=== PATIENT | female | born 1990 | race Caucasian/White ===

== ENCOUNTER → 2017-01-06 | Outpatient (CLI) | payer OTHER ==
[~2017-01-06] MED LIST: PENI500T PO; Z.0.NO CURRENT MEDS
[2017-01-06 11:15] LABS: AUTOMATED NEUTROPHIL # 4.4 TH/MM3 (1.8-7.7); BASOPHIL % 0.3 % (0.0-2.0); EOSINOPHIL # 0.1 TH/MM3 (0-0.4); EOSINOPHIL % 1.3 % (0.0-4.0); HEMATOCRIT 36.9 % (35.0-46.0); HEMO FLAGS DIFF FINAL; LYMPH % 24.8 % (9.0-44.0); LYMPHOCYTE # 1.6 TH/MM3 (1.0-4.8); MEAN CORPUSCULAR HEMOGLOBIN 30.6 PG (27.0-34.0); MEAN CORPUSCULAR HGB CONC 34.4 % (32.0-36.0); MONO % 6.9 % (0.0-8.0); NEUT % 66.7 % (16.0-70.0); PLATELET COUNT 256 TH/MM3 (150-450); RED BLOOD COUNT 4.15 MIL/MM3 (4.00-5.30); RED CELL DISTRIBUTION WIDTH 12.5 % (11.6-17.2); WHITE BLOOD COUNT 6.6 TH/MM3 (4.0-11.0)
[2017-01-06 11:53] LABS: RUBELLA IGG ANTIBODY 134.5 IU/mL (10.0-500.0); RUBELLA STATUS IMMUNE (IMMUNE)
[2017-01-07 17:13] LABS: CALCULATED AGE AT EDD 28 years (()); GA USED IN RISK ESTIMATE Scan estimate (()); MATERNAL RACE BLACK non-Black (()); MATERNAL WEIGHT (LBS) 149 lbs (()); RECOMMENDED FOLLOW UP None. (())
== END ==
LOC: CLAB 10:35
PROVIDERS: ATTEND Obstetrics & Gynecology
DX: Z34.80 Encounter for supervision of other normal pregnancy, unspecified trimester (principal)
CPT/HCPCS: 36415; 81511; 85025; 86592; 86703; 86762; 86850; 86900; 86901; 87086; 87340

== ENCOUNTER → 2017-03-26 | Outpatient (CLI) | payer OTHER ==
[2017-03-26 08:44] LABS: HEMATOCRIT 35.9 % (35.0-46.0); REVIEW FLAG FINAL
== END ==
LOC: CLAB 07:00
PROVIDERS: ATTEND Obstetrics & Gynecology
DX: Z34.82 Encounter for supervision of other normal pregnancy, second trimester (principal); Z36.89 Encounter for other specified antenatal screening
CPT/HCPCS: 36415; 82951; 85014; 85018; 86703

== ENCOUNTER → 2017-06-05 | Emergency (ER) | payer OTHER ==
[~2017-06-05] VITALS: Ht 170.2 cm; Wt 76.2 kg
[~2017-06-05] MED LIST changes: +CALC1TAB12 PO; +PREN29TA PO; +PROT40TA PO
[2017-06-05 15:00] VITALS: TEMP 97.5
[2017-06-05 15:15] VITALS: BP 130/75; PULSE 97
--- NOTE | 2017-06-05 15:27 | PD ---
HPI Chief Complaint vision problem in L eye Date Seen: Jun 05, 2017 Time Seen: 15:20 Travel History International Travel<30 Days: No Contact w/Intl Traveler<30Days: No Known Affected Area: No History of Present Illness HPI Pt is a 26y/o @ 38.0wks. She has PNC with Dr. Abernathy. She states that she was shopping today and around 11am noticed a change in her vision in the L eye where it became blurry in one half. She also started to have a headache. She was scared and said she had pulse changes. 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 She went home and called Dr. Rodriguez (sales operations assistant) and was advised to come in for evaluation. Pt states her symptoms have since resolved. She has a h/o migraines approximately one every five years. She states her aura involves visual disturbances but it is different from today. No LOF, VB, ctx. +FM. She states she would like to be delivered if possible. Weeks Gestation: 38 Para: 0 : 2 History Past Medical History Medical History: Denies Significant Hx Obstetric History Obstetric History 1. TAB 2. current Past Surgical History Narrative Surgical L hand TAB D&C Family History Family History: Negative Social History Alcohol Use: No Tobacco Use: No Substance Abuse: No Allergies-Medications (Allergen,Severity, Reaction): Coded Allergies: No Known Allergies (Verified , 08/16/11) Home Meds Active Scripts Penicillin V Potassium (Pen Vk) 500 Mg Tab, 500 MG PO QID for 10 Days Prov:YOSI NELSON M.D. 08/16/11 Reported Medications Miscellaneous (No Current Meds) Misc 12/02/10 Review of Systems Except as stated in HPI: all other systems reviewed are Neg Physical Exam Narrative General: well developed, well nourished, no acute distress HEENT: normocephalic atraumatic, extraocular movements intact, neck supple Abdomen: soft, gravid, nontender, nondistended Uterus: fundus term Extremities: full range of motion Skin: normal coloration, no rashes, no suspicious skin lesions noted Neurologic: cranial nerves 2-12 grossly intact, normal muscle tone, normal gait Psychiatric: normal mood and affect, appropriate FHTs: 130s, +accels, no decels, moderate variability Rackerby: single ctx seen Cvx: Data Data Vital Signs Reviewed: Yes MDM Plan 26y/o @ 38.0wks with episode of blurry vision in L eye and ROBLERO. -- BP normotensive -- sx resolved -- NST Diagnosis Diagnosis: Primary Impression: 38 weeks gestation of Additional Impressions: Vision abnormalities Headache Brodie Worrell MD Jun 05, 2017 15:27
[2017-06-05 15:33] VITALS: BP 124/68; PULSE 84
[2017-06-05 15:45] VITALS: BP 112/71; PULSE 81
== END | disposition home or self-care (01) ==
LOC: HOBED 14:40
DX: O26.893 Other specified pregnancy related conditions, third trimester (principal); H53.8 Other visual disturbances; R51 Headache; Z3A.38 38 weeks gestation of pregnancy
CPT/HCPCS: 59025

== ENCOUNTER 2017-06-17 00:59 | Inpatient (IN) | payer OTHER ==
[2017-06-17] VITALS (122 sets, daily range): BP systolic 88–135; BP diastolic 50–88; PULSE 45–98; RESP 16–18; TEMP 97.4–98.1
[~2017-06-17] VITALS: Ht 170.2 cm; Wt 76.7 kg
[~2017-06-17 00:59] MED LIST changes: -CALC1TAB12 PO; -PREN29TA PO; -PROT40TA PO
[2017-06-17] MEDS ORDERED: PREN29TA PO (01:31)
[2017-06-17] MEDS ORDERED: PROT40TA PO (01:31)
[2017-06-17] MEDS ORDERED: CALC1TAB12 PO (01:31)
[2017-06-17] MEDS ORDERED: LACTATED RINGER'S 1000 ML INJ 1,000 ML IV PRN (02:03)
[2017-06-17] MEDS: LACTATED RINGER'S 1000 ML INJ 1,000 ML IV SCH ×3 (02:03→18:03)
--- NOTE | 2017-06-17 02:08 | HHI.HP ---
HPI Chief Complaint Contraction pain Date Seen: Jun 17, 2017 Time Seen: 02:00 Travel History International Travel<30 Days: No Contact w/Intl Traveler<30Days: No Known Affected Area: No History of Present Illness HPI 26-year-old white female at 39 weeks presents complaining of contractions are painful and regular. No bleeding or leakage of fluid. heart rate tracing is reactive and she is liv every 3-4 minutes firmly[address] She sees Dr. Mendez for care. Weeks Gestation: 39 Para: 0 : 2 Miscarriage: 1 History Obstetric History Obstetric History 1 early loss Social History Narrative Social History Patient is a surgical nurse in our OR Alcohol Use: No Tobacco Use: No Substance Abuse: No Allergies-Medications (Allergen,Severity, Reaction): Coded Allergies: No Known Allergies (Verified Adverse Reaction, Unknown, 06/17/17) Home Meds Reported Medications Calcium Carbonate-Cholecalciferol (Calcium 500 +D) 500-400 Mg-Unit Tab, 1 TAB PO BID for Calcium Supplement, TAB 0 Refills 06/17/17 Pantoprazole (Protonix) 40 Mg Tab, 40 MG PO DAILY for Reflux, #30 TAB 0 Refills 06/17/17 Vit-Iron Carbonyl ( Plus Iron 29-1 mg) 29 Mg Iron-1 Mg Tab, 1 TAB PO DAILY for Nutritional Supplement, #30 TAB 0 Refills 06/17/17 Discontinued Reported Medications Miscellaneous (No Current Meds) Misc 12/02/10 Discontinued Scripts Penicillin V Potassium (Pen Vk) 500 Mg Tab, 500 MG PO QID for 10 Days Prov:YOSI NELSON M.D. 08/16/11 Review of Systems General / Constitutional: No: Fever, Weight Gain, Chills, Other Eyes: No: Diploplia, Blurred Vision, Visual changes, Pain, Photophobia HENT: No: Headaches, Vertigo, Lightheadedness Cardiovascular: No: Irregular Rhythm, Chest Pain or Discomfort, Palpitations, Tachycardia, Syncope, Varicosities, Edema, Cyanosis Respiratory: No: Cough, Short of Breath, Other Gastrointestinal: Abdominal Pain, No: Nausea, Vomiting, Diarrhea Genitourinary: No: Decreased Urinary Output, Oliguria Musculoskeletal: No: Limited ROM, Weakness, Cramping, Edema, Pain Skin: No Rash, No Itching, No Dryness, No Lumps, No Change in Pigmentation, No Change in Nails, No Alopecia, No Lesions Neurologic: No: Weakness, Dizziness, Syncope, Focal Abnormalities, Coordination Problem, Headache, Slurred Speech, Seizures Psychiatric: No: Depression, Suicidal Ideations, Homicidal Ideation Endocrine: No: Heat Intolerance, Cold Intolerance, Polydipsia, Polyuria, Other Physical Exam Narrative GENERAL: Well-nourished, well-developed patient. SKIN: Warm and dry. HEAD: Normocephalic and atraumatic. EYES: No scleral icterus. No injection or drainage. ENT: No nasal drainage noted. Mucous membranes pink. Airway patent. NECK: Supple, trachea midline. No JVD. CARDIOVASCULAR: Regular rate and rhythm without murmurs, gallops, or rubs. RESPIRATORY: Breath sounds equal bilaterally. No accessory muscle use. BREASTS: Bilateral exam showed no masses , no retractions, no nipple discharge. ABDOMEN/GI: Abdomen soft, non-tender, bowel sounds present, no rebound, no guarding Gravid to [39-] weeks size Fundal Height: [39-] GENITOURINARY: External Genitalia: intact and normal in appearance BUS glands: [-] Cervix: [post-] Dilatation: [-4] Effacement: [-90] Station: [-3] Presentation: [vtx-] Membranes: [intact ] Uterine Contractions: [-reg] FHT's: Category: [-1] Baseline: [-133] Reactive: [R-] Variability: [-mod] Decels: [none-] EXTREMITIES: No cyanosis or edema. BACK: Nontender without obvious deformity. No CVA tenderness. NEUROLOGICAL: Awake and alert. Motor and sensory grossly within normal limits. Five out of 5 muscle strength in all muscle groups. Normal speech. Caprini VTE Risk Assessment Caprini VTE Risk Assessment: No/Low Risk (score <= 1) Caprini Risk Assessment Model Point Value = 1 Point Value = 2 Point Value = 3 Point Value = 5 Age 41-60 Minor surgery BMI > 25 kg/m2 Swollen legs Varicose veins or History of unexplained or recurrent spontaneous Oral contraceptives or hormone replacement Sepsis (< 1 month) Serious lung disease, including pneumonia (< 1 month) Abnormal pulmonary function Acute myocardial infarction Congestive heart failure (< 1 month) History of inflammatory bowel disease Medical patient at bed rest Age 61-74 Arthroscopic surgery Major open surgery (> 45 min) Laparoscopic surgery (> 45 min) Malignancy Confined to bed (> 72 hours) Immobilizing plaster cast Central venous access Age >= 75 History of VTE Family history of VTE Factor V Leiden Prothrombin [id number] Lupus anticoagulant Anticardiolipin antibodies Elevated serum homocysteine Heparin-induced thrombocytopenia Other congenital or acquired thrombophilia Stroke (< 1 month) Elective arthroplasty Hip, pelvis, or leg fracture Acute spinal cord injury (< 1 month) Prophylaxis Regimen Total Risk Factor Score Risk Level Prophylaxis Regimen 0-1 Low Early ambulation 2 Moderate Order ONE of the following: *Sequential Compression Device (SCD) *Heparin 5000 units SQ BID 3-4 Higher Order ONE of the following medications: *Heparin 5000 units SQ TID *Enoxaparin/Lovenox 40 mg SQ daily (WT < 150 kg, CrCl > 30 mL/min) *Enoxaparin/Lovenox 30 mg SQ daily (WT < 150 kg, CrCl > 10-29 mL/min) *Enoxaparin/Lovenox 30 mg SQ BID (WT < 150 kg, CrCl > 30 mL/min) AND/OR *Sequential Compression Device (SCD) 5 or more Highest Order ONE of the following medications: *Heparin 5000 units SQ TID (Preferred with Epidurals) *Enoxaparin/Lovenox 40 mg SQ daily (WT < 150 kg, CrCl > 30 mL/min) *Enoxaparin/Lovenox 30 mg SQ daily (WT < 150 kg, CrCl > 10-29 mL/min) *Enoxaparin/Lovenox 30 mg SQ BID (WT < 150 kg, CrCl > 30 mL/min) AND *Sequential Compression Device (SCD) Data Data Orders Orders Ob (2e) Additional Admit Info (06/17/17 02:04) Admit To Inpatient (06/17/17 ) Vital Signs (Adult) .Per protocol (06/17/17 02:03) Heart (06/17/17 02:03) Amnioinfusion (06/17/17 02:03) Urinary Catheter Management .ONCE (06/17/17 02:03) Diet Liquid (06/17/17 Breakfast) Lactated Ringer's 1000 Ml Inj (Lr 1000 M (06/17/17 02:03) Lactated Ringer's 1000 Ml Inj (Lr 1000 M (06/17/17 02:03) Sodium Chlorid 0.9% 500 Ml Inj (Ns 500 M (06/17/17 02:15) Sodium Chlor 0.9% 1000 Ml Inj (Ns 1000 M (06/17/17 02:23) Lidocaine 1% Inj (50 Ml) (Xylocaine 1% I (06/17/17 02:15) Citric Acid-Sodium Citrate Liq (Bicitra (06/17/17 02:15) Fentanyl Inj (Fentanyl Inj) (06/17/17 02:15) Fentanyl Inj (Fentanyl Inj) (06/17/17 02:15) Complete Blood Count With Diff (06/17/17 02:03) Hold Clot (06/17/17 02:03) Abo/Rh Blood Type (06/17/17 02:03) Urinalysis - C+S If Indicated (06/17/17 02:03) Drug Screen, Random Urine (06/17/17 02:03) Type And Screen (06/17/17 02:03) Resp Oxygen Non Rebreathe Mask (06/17/17 ) ^ Epidural / Intrathecal Infus (06/17/17 02:03) Oxytocin 30 Units-500ml Premix (Pitocin (06/17/17 02:15) Lidocaine 1% Inj (50 Ml) (Xylocaine 1% I (06/17/17 02:15) Light Mineral Oil (Muri-Lube Oil) (06/17/17 02:15) Group B Strep: Negative Assessment/Plan Assessment and Plan Patient is 39 week and active labor, cervix 4/90/-3/vertex Plan-admission to labor and delivery, managed labor, augment when necessary, anticipate vaginal delivery Shawn Yañez II, MD Jun 17, 2017 02:08
[2017-06-17] MEDS ORDERED: LIDOCAINE HCL 1% 50 ML VIAL INFIL PRN (02:15)
[2017-06-17] MEDS ORDERED: MINERAL OIL 10 ML VIAL TOPICAL PRN (02:15)
[2017-06-17] MEDS ORDERED: CITRIC ACID-SODIUM CITRATE LIQ 30 ML UDC PO SCH (02:15)
[2017-06-17] MEDS ORDERED: SODIUM CHLORID 0.9% 500 ML INJ 500 ML IV PRN (02:15)
[2017-06-17] MEDS ORDERED: LIDOCAINE HCL 1% 50 ML VIAL I-DERMAL PRN (02:15)
[2017-06-17] MEDS ORDERED: OXYTOCIN 30 UNITS-500ML PREMIX 500 ML IV ONE (02:15)
[2017-06-17] MEDS ORDERED: SODIUM CHLOR 0.9% 1000 ML INJ 1,000 ML IV PRN (02:23)
[2017-06-17] MEDS ORDERED: fentaNYL 2MCG-BUPIV 0.125% INJ 100 ML ONE (02:28)
[2017-06-17] MEDS ORDERED: ePHEDrine/NS 25 MG/5 ML SYRINGE ONE (02:28)
[2017-06-17 02:29] LABS: AUTOMATED NEUTROPHIL # 5.5 TH/MM3 (1.8-7.7); BASOPHIL % 0.6 % (0.0-2.0); EOSINOPHIL # 0.1 TH/MM3 (0-0.4); EOSINOPHIL % 0.6 % (0.0-4.0); HEMOGLOBIN 12.1 GM/DL (11.6-15.3); LYMPHOCYTE # 2.3 TH/MM3 (1.0-4.8); MEAN CELL VOLUME 83.9 FL (80.0-100.0); MEAN CORPUSCULAR HEMOGLOBIN 28.3 PG (27.0-34.0); MEAN CORPUSCULAR HGB CONC 33.7 % (32.0-36.0); MEAN PLATELET VOLUME 8.3 FL (7.0-11.0); MONO % 10.2 % (0.0-8.0); MONOCYTE # 0.9 TH/MM3 (0-0.9); NEUT % 62.6 % (16.0-70.0); PLATELET COUNT 275 TH/MM3 (150-450); RED BLOOD COUNT 4.29 MIL/MM3 (4.00-5.30); RED CELL DISTRIBUTION WIDTH 12.9 % (11.6-17.2); WHITE BLOOD COUNT 8.7 TH/MM3 (4.0-11.0)
[2017-06-17 02:31] LABS: BACTERIA, URINE OCC /hpf; BILIRUBIN, URINE NEG (NEG); BLOOD, URINE NEG (NEG); GLUCOSE,URINE NEG (NEG); KETONE, URINE NEG (NEG); MUCUS URINE FEW /lpf (OCC); NITRITE,URINE NEG (NEG); SQUAMOUS EPITHELIAL CELL URINE 1 /hpf (0-5); URINE COLOR YELLOW (YELLW/STRAW); URINE LEUKOCYTE ESTERASE NEG (NEG)
[2017-06-17] MEDS ORDERED: DO NOT ADMINISTER ANTICOAGULANTS PRN (04:15)
[2017-06-17] MEDS ORDERED: NO SYSTEM NARCOTICS PRN (04:15)
[2017-06-17] MEDS ORDERED: ePHEDrine/NS 25 MG/5 ML SYRINGE IV PUSH PRN (04:15)
[2017-06-17] MEDS ORDERED: fentaNYL 2MCG-BUPIV 0.125% 100 ML EPIDURAL SCH (04:15)
[2017-06-17] MEDS ORDERED: OXYTOCIN 30 UNITS-500ML PREMIX 500 ML IV PRN (09:15)
--- NOTE | 2017-06-17 09:18 | PD.LABORPN ---
Subjective Subjective doing well Objective Vital Signs Vital Signs Date Time Temp Pulse Resp B/P (MAP) Pulse Ox O2 Delivery O2 Flow Rate FiO2 06/17/17 09:00 77 06/17/17 08:55 64 06/17/17 08:40 80 06/17/17 08:35 66 06/17/17 08:30 78 06/17/17 08:25 67 06/17/17 08:20 66 06/17/17 08:15 64 06/17/17 08:10 69 06/17/17 08:05 65 06/17/17 08:03 18 06/17/17 08:03 62 94/50 (65) 06/17/17 08:00 63 06/17/17 07:55 62 06/17/17 07:50 71 06/17/17 07:45 63 06/17/17 07:40 64 06/17/17 07:35 60 06/17/17 07:30 72 06/17/17 07:25 70 06/17/17 07:15 65 06/17/17 07:10 45 06/17/17 07:05 97.4 18 06/17/17 07:00 68 114/67 (83) 06/17/17 07:00 69 06/17/17 06:55 71 06/17/17 06:55 69 06/17/17 06:50 63 06/17/17 06:50 67 06/17/17 06:48 69 110/70 (83) 06/17/17 06:46 68 100/61 (74) 06/17/17 06:45 73 06/17/17 06:45 70 06/17/17 06:40 63 06/17/17 06:30 59 108/57 (74) 06/17/17 06:27 18 06/17/17 06:25 69 06/17/17 06:20 71 06/17/17 06:16 103/66 (78) 06/17/17 06:10 91 06/17/17 06:00 97.5 06/17/17 06:00 18 06/17/17 06:00 67 123/65 (84) 06/17/17 05:55 69 06/17/17 05:45 108/67 (81) 06/17/17 05:40 65 06/17/17 05:30 18 1/18/18 05:30 102/62 (75) 18 05:30 18 18 05:25 89 18 05:16 104/59 (74) 18 05:10 71 18 05:10 72 18 05:05 69 06/17/17 05:00 105/61 (76) 06/17/17 05:00 18 06/17/17 04:55 73 18 04:50 63 18 04:45 104/64 (77) 06/17/17 04:40 63 06/17/17 04:39 62 108/70 (83) 06/17/17 04:31 77 104/63 (77) 06/17/17 04:30 91 06/17/17 04:30 97/58 (71) 06/17/17 04:30 18 06/17/17 04:15 75 112/67 (82) 06/17/17 04:00 107/71 (83) 06/17/17 04:00 75 18 06/17/17 03:47 74 18 03:47 113/69 (84) 18 03:46 81 18 03:39 73 112/65 (81) 06/17/17 03:35 72 18 03:30 74 18 03:30 98.0 06/17/17 03:30 18 18 03:26 93 116/67 (83) 18 03:20 121/65 (83) 18 03:15 119/67 (84) 18 03:10 86 120/70 (87) 18 03:10 82 18 03:05 82 124/66 (85) 06/17/17 03:05 88 18 03:02 95 110/64 (79) 18 03:00 94 18 03:00 96 110/58 (75) 18 02:57 83 118/68 (85) 18 02:55 80 18 02:54 115/63 (80) 18 02:51 66 124/58 (80) 1/18/18 02:50 76 06/17/17 02:49 79 18 113/69 (84) 06/17/17 02:48 135/77 (96) 06/17/17 02:48 80 Objective Pelvic Exam: Cervix: [-] Dilatation:5 Effacement: [-] Station: [-] Presentation: [-] Membranes AROM Uterine Contractions: [-] FHT's: Category: 1 Baseline: [-] Reactive: [-] Variability: [-] Decels: [-] Weeks Gestation: 39 Gest Age Assessed Date: Jun 17, 2017 Assessment/Plan Problem List: (1) 38 weeks gestation of ICD Codes: Z3A.38 - 38 weeks gestation of Status: Acute Gavin Abernathy MD Jun 17, 2017 09:18
--- NOTE | 2017-06-17 13:16 | PD.LABORPN ---
Subjective Subjective doing well Objective Vital Signs Vital Signs Date Time Temp Pulse Resp B/P (MAP) Pulse Ox O2 Delivery O2 Flow Rate FiO2 06/17/17 12:54 97.7 18 06/17/17 12:53 71 101/72 (82) 06/17/17 12:01 67 106/55 (72) 06/17/17 12:00 18 06/17/17 11:05 66 06/17/17 11:00 63 06/17/17 10:55 61 06/17/17 10:50 61 06/17/17 10:45 63 06/17/17 10:43 97.9 18 06/17/17 10:43 63 101/64 (76) 06/17/17 10:40 71 06/17/17 10:35 61 06/17/17 10:30 73 06/17/17 10:25 70 06/17/17 10:20 72 06/17/17 10:15 63 06/17/17 10:14 68 104/69 (81) 06/17/17 10:10 82 06/17/17 10:05 71 06/17/17 10:00 69 06/17/17 09:55 76 06/17/17 09:50 86 06/17/17 09:45 65 06/17/17 09:44 18 06/17/17 09:42 71 100/60 (73) 06/17/17 09:40 67 06/17/17 09:35 63 06/17/17 09:30 81 06/17/17 09:25 71 06/17/17 09:20 64 06/17/17 09:15 75 06/17/17 09:10 63 06/17/17 09:08 97.4 18 06/17/17 09:05 80 06/17/17 09:03 91 88/55 (66) 06/17/17 09:00 77 06/17/17 08:55 64 06/17/17 08:50 80 06/17/17 08:45 77 06/17/17 08:40 80 18 08:35 66 06/17/17 08:30 78 06/17/17 08:25 67 06/17/17 08:20 66 06/17/17 08:15 64 06/17/17 08:10 69 06/17/17 08:05 65 06/17/17 08:03 18 06/17/17 08:03 62 94/50 (65) 06/17/17 08:00 63 06/17/17 07:55 62 06/17/17 07:50 71 06/17/17 07:45 63 06/17/17 07:40 64 06/17/17 07:35 60 06/17/17 07:30 72 06/17/17 07:25 70 06/17/17 07:15 65 06/17/17 07:10 45 06/17/17 07:05 97.4 18 06/17/17 07:00 68 114/67 (83) 06/17/17 07:00 69 06/17/17 06:55 71 06/17/17 06:55 69 06/17/17 06:50 63 06/17/17 06:50 67 06/17/17 06:48 69 110/70 (83) 06/17/17 06:46 68 100/61 (74) 06/17/17 06:45 73 06/17/17 06:45 70 06/17/17 06:40 63 06/17/17 06:30 59 108/57 (74) 06/17/17 06:27 18 06/17/17 06:25 69 06/17/17 06:20 71 06/17/17 06:16 103/66 (78) 06/17/17 06:10 91 06/17/17 06:00 97.5 06/17/17 06:00 18 06/17/17 06:00 67 123/65 (84) 06/17/17 05:55 69 06/17/17 05:45 108/67 (81) 06/17/17 05:40 65 06/17/17 05:30 18 06/17/17 05:30 102/62 (75) 06/17/17 05:30 18 06/17/17 05:25 89 06/17/17 05:16 104/59 (74) Objective Pelvic Exam: Cervix: [-] Dilatation: 6 Effacement: [-] Station: [-] Presentation: [-] Membranes: AROM Uterine Contractions: [-] FHT's: Category: 1 Baseline: [-] Reactive: [-] Variability: [-] Decels: [-] Weeks Gestation: 39 Gest Age Assessed Date: Jun 17, 2017 Assessment/Plan Problem List: (1) 38 weeks gestation of ICD Codes: Z3A.38 - 38 weeks gestation of Status: Acute Gavin Abernathy MD Jun 17, 2017 13:16
--- NOTE | 2017-06-17 14:50 | PD.OB.DELI ---
Weeks gestation: 39 Gest age assessed date: Jun 17, 2017 Gest age assessed time: 09:00 Pt started active labor?: Yes Active labor start date: Jun 17, 2017 Active labor start time: 02:00 Medical induction of labor?: No Artificial rupture of membrane: Yes Artificial ROM date: Jun 17, 2017 Artifical ROM time: 09:00 Anesthesia: None Episiotomy: Right mediolateral Vaginal Delivery: Normal Presentation: Occiput posterior Nuchal Cord: None Delayed cord clamping (45 sec): Yes Infant: Female, Single Delivery date: Jun 17, 2017 Delivery time: 14:30 One Minute : 9 Five Minute : 9 Placenta: Spontaneous delivery, Intact, 3 vessel cord Laceration: Episiotomy, 2 deg Estimated blood loss: 300 Gavin Abernathy MD Jun 17, 2017 14:50
[2017-06-17] MEDS ORDERED: OXYTOCIN 30 UNITS-500ML PREMIX 500 ML IV SCH (15:00)
[2017-06-17] MEDS ORDERED: SODIUM CHLORIDE 0.9% FLUSH 10 ML FLUSH IV FLUSH PRN (15:00)
[2017-06-17] MEDS ORDERED: oxyCODONE/ACETAMINOPHEN 5 MG/325 MG TAB PO PRN (15:00)
[2017-06-17] MEDS ORDERED: ONDANSETRON ODT 4 MG TAB PO PRN (15:00)
[2017-06-17] MEDS ORDERED: ALUMINUM/MAGNESIUM/SIMETH 30 ML CUP PO PRN (15:00)
[2017-06-17] MEDS ORDERED: ZOLPIDEM TARTRATE 5 MG TAB PO PRN (15:00)
[2017-06-17] MEDS ORDERED: ACETAMINOPHEN 325 MG TAB PO PRN (15:00)
[2017-06-17] MEDS: IBUPROFEN 800 MG TAB PO PRN ×2 (15:56→23:15)
[2017-06-17] MEDS ORDERED: DIPHTH/TETANUS/ACEL PERTUSSIS (BOOSTER) 0.5 ML VIAL/PFS IM ONE (16:00)
[2017-06-17] MEDS ORDERED: MEASLES, MUMPS, RUBELLA VACCINE 0.5 ML VIAL SQ ONE (16:00)
[2017-06-17] MEDS: BENZOCAINE 20% TOPICAL SPRAY 60 ML CAN TOPICAL PRN ×2 (17:22→17:35)
[2017-06-17] MEDS: WITCH HAZEL 50%/GLYCERIN 12.5% 40 PAD JAR TOPICAL PRN ×2 (17:22→17:35)
--- NOTE | 2017-06-17 20:46 | HHI.DCPOC ---
Discharge Care Plan Diagnosis: (1) Spontaneous vaginal delivery Report Symptoms to Your Doctor -Temperature above 100.5 degrees -Redness, of incision or excessive or foul smelling drainage -Unusual pain or calf pain -Increased vaginal bleeding -Painful or difficulty urinating -Feelings of extreme sadness or anxiety after 2 weeks Goals to Promote Your Health * To prevent worsening of your condition and complications * To maintain your health at the optimal level Directions to Meet Your Goals Take your medications as prescribed Follow your dietary instruction Follow activity as directed Ensure plenty of rest for recovery Drink fluids for hydration Keep your appointments as scheduled Take your immunizations and boosters as scheduled If your symptoms worsen call your PCP, if no PCP go to Urgent Care Center or Emergency Room Smoking is Dangerous to Your Health. Avoid second hand smoke Call the 24-hour crisis hotline for domestic abuse at Gavin Abernathy MD Jun 17, 2017 20:46
[2017-06-17] MEDS ORDERED: SODIUM CHLORIDE 0.9% FLUSH 10 ML FLUSH IV FLUSH SCH (21:00)
[2017-06-17] MEDS: DOCUSATE SODIUM 50 MG/SENNA 8.6 MG TAB PO PRN (21:03)
[2017-06-17] MEDS: oxyCODONE/ACETAMINOPHEN 5 MG/325 MG TAB PO PRN (21:05)
[2017-06-18] MEDS: IBUPROFEN 800 MG TAB PO PRN (07:31)
[2017-06-18] MEDS: oxyCODONE/ACETAMINOPHEN 5 MG/325 MG TAB PO PRN ×2 (07:31→13:55)
[2017-06-18] MEDS: DOCUSATE SODIUM 50 MG/SENNA 8.6 MG TAB PO PRN (07:35)
[2017-06-18 08:00] VITALS: BP 116/74; PULSE 84; RESP 18; TEMP 97.4; O2SAT 98
--- NOTE | 2017-06-18 08:02 | HHI.OB ---
Subjective Post Day: 1 Remarks doing well ok to dc home Objective Vitals/I&O Vital Signs Date Time Temp Pulse Resp B/P (MAP) Pulse Ox O2 Delivery O2 Flow Rate FiO2 06/17/17 21:00 97.8 69 16 101/57 (72) 06/17/17 15:51 18 06/17/17 15:46 85 115/74 (88) 06/17/17 15:31 68 127/73 (91) 06/17/17 15:30 18 06/17/17 15:15 88 110/64 (79) 06/17/17 15:08 98.1 06/17/17 15:08 18 06/17/17 15:02 98 121/67 (85) 06/17/17 14:51 91 110/88 (95) 06/17/17 14:50 18 06/17/17 13:53 84 111/70 (84) 06/17/17 13:52 18 06/17/17 12:54 97.7 18 06/17/17 12:53 71 101/72 (82) 06/17/17 12:01 67 106/55 (72) 06/17/17 12:00 18 06/17/17 11:05 66 06/17/17 11:00 63 06/17/17 10:55 61 06/17/17 10:50 61 06/17/17 10:45 63 06/17/17 10:43 97.9 18 06/17/17 10:43 63 101/64 (76) 06/17/17 10:40 71 06/17/17 10:35 61 06/17/17 10:30 73 06/17/17 10:25 70 06/17/17 10:20 72 06/17/17 10:15 63 06/17/17 10:14 68 104/69 (81) 06/17/17 10:10 82 06/17/17 10:05 71 06/17/17 10:00 69 06/17/17 09:55 76 06/17/17 09:50 86 18 09:45 65 18 09:44 18 06/17/17 09:42 71 100/60 (73) 06/17/17 09:40 67 06/17/17 09:35 63 06/17/17 09:30 81 06/17/17 09:25 71 06/17/17 09:20 64 06/17/17 09:15 75 06/17/17 09:10 63 06/17/17 09:08 97.4 18 06/17/17 09:05 80 06/17/17 09:03 91 88/55 (66) 06/17/17 09:00 77 06/17/17 08:55 64 06/17/17 08:50 80 06/17/17 08:45 77 06/17/17 08:40 80 06/17/17 08:35 66 06/17/17 08:30 78 06/17/17 08:25 67 06/17/17 08:20 66 06/17/17 08:15 64 06/17/17 08:10 69 06/17/17 08:05 65 06/17/17 08:03 18 06/17/17 08:03 62 94/50 (65) Objective Remarks GENERAL: Well-nourished, well-developed patient. ABDOMEN/GI: Abdomen soft, non-tender. Fundus: Firm, non-tender at umbilicus. GENITOURINARY: Light to moderate bleeding. EXTREMITIES: No cyanosis or edema, non-tender, without signs of DVT. Medications and IVs Current Medications Medications (Trade) Dose Ordered Sig/Gabriel Route Start Time Stop Time Status Last Admin Lactated Ringer's 1,000 ml @ 125 mls/hr Q8H IV 06/17/17 02:03 06/17/17 09:43 Lactated Ringer's 1,000 ml @ 3,000 mls/hr Q20M PRN IV 06/17/17 02:03 Sodium Chloride 1,000 ml @ 100 mls/hr Q10H PRN IV 06/17/17 02:23 (Xylocaine 1% Inj (50 ml)) 0.1 ml UNSCH X1 PRN I-DERMAL 06/17/17 02:15 06/20/17 02:14 (Bicitra Liq) 30 ml CARBON CUTTER PO 06/17/17 02:15 06/21/17 02:14 (Xylocaine 1% Inj (50 ml)) 10 ml UNSCH X1 PRN INFIL 06/17/17 02:15 06/19/17 02:14 (Muri-Lube Oil) 10 ml UNSCH PRN TOPICAL 1/18/18 02:15 Fentanyl/ Bupivacaine HCl 100 ml @ 0 mls/hr TITRATE EPIDURAL 06/17/17 04:15 (NS Flush) 2 ml BID IV FLUSH 06/17/17 21:00 (NS Flush) 2 ml UNSCH PRN IV FLUSH 06/17/17 15:00 (Tylenol) 650 mg Q4H PRN PO 06/17/17 15:00 (Motrin) 800 mg Q8H PRN PO 06/17/17 15:00 06/18/17 07:31 (Percocet 5-325 Mg) 1 tab Q4H PRN PO 06/17/17 15:00 06/17/17 15:55 (Percocet 5-325 Mg) 2 tab Q4H PRN PO 06/17/17 15:00 06/18/17 07:31 (Americaine 20% Top Spr) 1 spray Q4H PRN TOPICAL 06/17/17 15:00 06/17/17 17:35 (Tucks Pads) 1 applic QID PRN TOPICAL 06/17/17 15:00 06/17/17 17:35 (Natalie-Colace) 2 tab Q12H PRN PO 06/17/17 15:00 06/18/17 07:35 (Ambien) 5 mg HS PRN PO 06/17/17 15:00 (Mag-Al Plus Susp Liq) 15 ml Q8H PRN PO 06/17/17 15:00 (Zofran Odt) 4 mg Q6H PRN PO 06/17/17 15:00 Assessment/Plan Problem List: (1) 38 weeks gestation of ICD Codes: Z3A.38 - 38 weeks gestation of Status: Acute Assessment and Plan dc home today after Gavin Perez MD Jun 18, 2017 08:02
[2017-06-18] MEDS ORDERED: OXYC1TAB63 PO (08:03)
== END 2017-06-18 16:06 | disposition home or self-care (01) | DRG 775 ==
LOC: HOBED 00:59 → H2EB 02:04 → H1EA 16:23
PROVIDERS: ADMIT Obstetrics & Gynecology; ATTEND Obstetrics & Gynecology
PROC: 10E0XZZ Delivery of Products of Conception, External Approach (ICD-10-PCS; principal; 2017-06-17)
PROC: 10907ZC Drainage of Amniotic Fluid, Therapeutic from Products of Conception, Via Natural or Artificial Opening (ICD-10-PCS; 2017-06-17)
PROC: 0KQM0ZZ Repair Perineum Muscle, Open Approach (ICD-10-PCS; 2017-06-17)
PROC: 0W8NXZZ Division of Female Perineum, External Approach (ICD-10-PCS; 2017-06-17)
DX: O70.1 Second degree perineal laceration during delivery (principal); Z37.0 Single live birth; Z3A.38 38 weeks gestation of pregnancy
CPT/HCPCS: 59025; 80307; 81001; 84112; 85025; 86850; 86900; 86901; 90715; J2590; J3010; J7120